=== PATIENT | female | born 1995 | race American Indian/Alaskan Native ===

== ENCOUNTER 2018-04-29 00:41 | Outpatient (CLI) | payer MEDICAID ==
--- NOTE | 2018-04-29 06:37 | Ultrasound Report ---
FINAL REPORT EXAM: US OB BPP WO NON-STRESS HISTORY: decrease mvmt TECHNIQUE: A limited OB sonogram was obtained for evaluation of a biophysical profile. FINDINGS: For tone, a score of 2 out of 2 was obtained. For breathing, a score of 2 out of 2 was obtained. For movements, a score of 2 out of 2 was obtained. For amniotic fluid volume, a score of 2 out of 2 was obtained. The biophysical profile score is 8 out of 8. The heart rate is 151 BPM. IMPRESSION: Biophysical profile score of 8 out of 8. The heart rate is 151 BPM.
--- NOTE | 2018-04-29 07:02 | Ultrasound Report ---
FINAL REPORT EXAM: US OB LIMITED HISTORY: decrease mvmt TECHNIQUE: A limited OB sonogram was obtained for evaluation of amniotic fluid index. FINDINGS: There is a single viable intrauterine with heart rate of 151 BPM. The OMAR is 9 cm which is within normal range. IMPRESSION: OMAR of 9 cm which is in normal range. The heart rate is 151 BPM.
== END 2018-04-29 02:24 | disposition home or self-care (01) ==
LOC: TRG 00:41
PROVIDERS: ATTEND Obstetrics & Gynecology
DX: O36.8130 Decreased fetal movements, third trimester, not applicable or unspecified (principal); Z3A.38 38 weeks gestation of pregnancy
CPT/HCPCS: 59025; 76815; 76819

== ENCOUNTER 2018-05-13 10:36 | Outpatient (CLI) | payer MEDICAID ==
[2018-05-13] MEDS ORDERED: VISTARIL PO PRN (11:50)
[2018-05-13 13:28] VITALS: BP 120/74
== END 2018-05-13 13:50 | disposition home or self-care (01) ==
LOC: TRG 10:36
PROVIDERS: ATTEND Obstetrics & Gynecology
DX: O47.1 False labor at or after 37 completed weeks of gestation (principal); Z3A.40 40 weeks gestation of pregnancy
CPT/HCPCS: 59025

== ENCOUNTER 2018-05-14 17:29 | Outpatient (CLI) | payer MEDICAID ==
[2018-05-14 17:46] VITALS: BP 121/76
== END 2018-05-14 18:18 | disposition home or self-care (01) ==
LOC: TRG 17:29
PROVIDERS: ATTEND Obstetrics & Gynecology
DX: O47.1 False labor at or after 37 completed weeks of gestation (principal); Z3A.40 40 weeks gestation of pregnancy

== ENCOUNTER 2018-05-18 06:08 | Outpatient (CLI) | payer MEDICAID ==
[2018-05-18 06:28] VITALS: BP 112/70
[2018-05-18] MEDS ORDERED: VISTARIL PO ONE (07:08)
== END 2018-05-18 07:26 | disposition home or self-care (01) ==
LOC: TRG 06:08
PROVIDERS: ATTEND Obstetrics & Gynecology
DX: O47.1 False labor at or after 37 completed weeks of gestation (principal); Z3A.41 41 weeks gestation of pregnancy
CPT/HCPCS: Q0177

== ENCOUNTER 2018-05-19 04:51 | Outpatient (CLI) | payer MEDICAID ==
[2018-05-19 06:00] VITALS: BP 130/90
[2018-05-19] MEDS ORDERED: MORPHINE IM ONE ×2 (08:41→09:00)
[2018-05-19] MEDS ORDERED: MORPHINE ONE (08:46)
== END 2018-05-19 09:20 | disposition home or self-care (01) ==
LOC: TRG 04:51
PROVIDERS: ATTEND Obstetrics & Gynecology
DX: O62.9 Abnormality of forces of labor, unspecified (principal); Z3A.41 41 weeks gestation of pregnancy
CPT/HCPCS: 59025; J2270

== ENCOUNTER 2018-05-19 20:50 | Inpatient (IN) | payer MEDICAID ==
[2018-05-19] MEDS ORDERED: LACTATED RINGERS 1,000 ML ONE (22:26)
[2018-05-19] MEDS ORDERED: PITOCin/NS 30 UNIT/500ML 30 UNITS/500 ML BAG IV SCH (22:28)
[2018-05-19 22:55] LABS: Hematocrit 37.7 % (30.3-42.9); Hemoglobin 12.7 gm/dl (10.1-14.3); Mean Corpuscular HGB Conc 34 % (30-34); Mean Corpuscular Hemoglobin 30 pg (28-32); Mean Corpuscular Volume 88 fl (79-97); Platelet Count 179 K/mm3 (140-440); Red Cell Distribution Width 14.4 % (13.2-15.2)
[2018-05-19] MEDS ORDERED: LACTATED RINGERS 1,000 ML IV SCH (23:00)
[2018-05-19] MEDS: ZOFRAN IV PRN (23:34)
[2018-05-20] MEDS: SUBLIMAZE IV PRN ×2 (02:29→04:35)
[2018-05-20] MEDS ORDERED: ePHEDrine SULFATE ONE (05:18)
--- NOTE | 2018-05-20 06:05 | History and Physical Report ---
History of Present Illness Date of examination: 05/20/18 (postdates IOL) Date of admission: 05/19/18 20:50 History of present illness: EDC Confirmation: 05/10/2018 Gestational Age: 8 5/7 weeks Past History : 1 Term Births: 0 Premature Births: 0 Living Children: 0 Para: 0 Mult. Births: 0 Prev : 0 Prev. attempt? 0 Aborta: 0 Elect. Ab: 0 Spont. Ab: 0 Ectopics: 0 Past Medical History: Breast tumors Past Surgical History: Breast Surgery: (2011) bilateral benign Family History Summary: Other family member - Has No Family History of Ovarvian Cancer - Entered On: Other family member - Has No Family History of Breast Cancer - Entered On: 10/03 Other family member - Has Family History of Hypertension - Entered On: 2016 Other family member - Has Family History of Diabetes - Entered On: 10/03/2017 Other family member - Has Family History of CVA or Stroke - Entered On: 2016 Other family member - Has Family History of Coronary Heart Disease - Entered On : 10/03/2017 Other family member - Has Family History Colon Cancer - Entered On: 10/03/2017 Social History: Patient is single Student Works at [employer] Risk Factors: Smoked Tobacco Use: Never smoker Drug use: no HIV high-risk behavior: low risk Alcohol use: yes Drinks per day: social Dietary Counseling: pn yes Past Medical History Surgery (Non-property worker): Breast Surgery: (2011) bilateral benign Abnormal PAP: negative Uterine Anomaly: negative Social Hx: Patient is single Student Works at [employer] Infection History Hx of STD: none HIV Risk Eval: low risk Hepatitis B Risk Eval: low risk Personal hx. of genital herpes: no Genetic History Congenital Heart Defect: Mom: no Dad: no Babak Disease: Mom: no Dad: no Thalassemia Mom: no Dad: no Neural Tube Defect Mom: no Dad: no Down's Syndrome Mom: no Dad: no Shai-Sachs Mom: no Dad: no Sickle Cell Disease/Trait Mom: no Dad: no Hemophilia Mom: no Dad: no Muscular Dystrophy Mom: no Dad: no Cystic Fibrosis Mom: no Dad: no [place] Chorea Mom: no Dad: no Mental Retardation Mom: no Dad: no Fragile X Mom: no Dad: no Other Genetic/Chromosomal Disorder Mom: no Dad: no Child w/other defect Mom: no Dad: no Enviromental Exposures Xray Exposure: no Medication, drug, or alcohol use since LMP: no Chemical/Other Exposure: no Exposure to Cat Liter: no Active Medications (reviewed today): PROMETHAZINE HCL 25 MG ORAL TABLET (PROMETHAZINE HCL) 1 po q 6 hrs prn nausea Current Allergies (reviewed today): No known allergies Laboratory Results Date/Time Collected: 10/03/2017 Urine HCG: positive Review of Systems General Complains of fatigue. Denies fever, chills, sweats, anorexia, weakness, malaise, weight loss and sleep disorder. Complains of vaginal discharge and pelvic pain. Denies incontinence, dysuria, hematuria, urinary frequency, amenorrhea, menorrhagia, abnormal vaginal bleeding, genital sores, decreased libido, painful periods, painful sex, urinary urgency, hot flashes, vaginal dryness, vaginal itching and vaginal odor. CV Denies chest pains, palpitations, syncope, dyspnea on exertion, orthopnea, PND and peripheral edema. Resp Denies cough, dyspnea at rest, excessive sputum, hemoptysis, wheezing and pleurisy. GI Complains of nausea and vomiting. Denies diarrhea, constipation, change in bowel habits, abdominal pain, melena, hematochezia, jaundice, gas/bloating, indigestion/heartburn, dysphagia and odynophagia. Breast Complains of breast pain. Denies left breast lump, right breast lump, nipple discharge, bloody discharge from nipple, abnormal mammogram and breast enlargement. Psych Denies depression, anxiety, irritability and mood swings. Past History - Obstetrical History Expected Date of Delivery: 05/10/18 Actual Gestation: 41 Week(s) 3 Day(s) : 1 Para: 0 Hx # Term Pregnancies: 0 Number of Pregnancies: 0 Spontaneous Abortions: 0 Induced : 0 Number of Living Children: 0 Medications and Allergies Allergies Allergy/AdvReac Type Severity Reaction Status Date / Time No Known Allergies Allergy Unverified 11/27/14 23:16 Home Medications Medication Instructions Recorded Confirmed Last Taken Type Ferrous Sulfate [Feosol 325 MG tab] 325 mg PO TID #90 tablet 11/28/14 10/31/17 Unknown Rx Promethazine HCl [Phenergan SUPPOS] 25 mg NH Q6HR #30 supp.rect 11/01/17 Unknown Rx Active Meds: Active Medications Fentanyl (Sublimaze) 100 mcg IV Q2H PRN PRN Reason: Labor Pain Last Admin: 05/20/18 04:35 Dose: 100 mcg Lactated Ringer's (Lactated Ringers) 1,000 mls @ 125 mls/hr IV DIRECT JEANNETTE Last Admin: 05/19/18 22:40 Dose: 125 mls/hr Oxytocin/Sodium Chloride (Pitocin/Ns 30 Unit/500ml) 30 units in 500 mls @ 1 mls /hr IV TITR JEANNETTE; Protocol Last Titration: 05/20/18 03:55 Dose: 3 milliunits/min, 3 mls/hr Ondansetron HCl (Zofran) 4 mg IV Q8H PRN PRN Reason: Nausea And Vomiting Last Admin: 05/19/18 23:34 Dose: 4 mg - Vital Signs Vital signs: Vital Signs Pulse Pulse Ox 105 H 99 05/19/18 21:30 05/19/18 21:30 Temp Pulse Resp BP Pulse Ox 98.3 F 80 18 126/73 96 05/19/18 22:23 05/20/18 06:04 05/20/18 02:29 05/20/18 06:04 05/20/18 06:01 - Physical Exam Breasts: Positive: deferred Cardiovascular: Regular rate, Normal S1, Normal S2 Lungs: Positive: Normal air movement Abdomen: Positive: normal appearance, soft, normal bowel sounds. Negative: distention, tenderness Genitourinary (Female): Positive: normal perenium Vulva: both: normal Vagina: Positive: normal moisture. Negative: discharge Cervix: Negative: lesion, discharge Uterus: Positive: normal size, normal contour Adnexa: both: normal Anus/Rectum: Positive: normal perianal skin, heme negative. Negative: rectal mass, hemorrhoids Extremities: Positive: normal Deep Tendon Reflex Grade: Normal +2 - Obstetrical FHR: category 1 Uterine Contraction Monitor Mode: External Cervical Dilatation: 4.5 (per RN) Cervical Effacement Percentage: 100 station: 0 Uterine Contraction Pattern: Regular Uterine Tone Measurement Phase: Resting Uterine Contraction Intensity: Moderate Results Result Diagrams: 05/19/18 21:27 Abnormal lab results 05/19/18 Range/Units 21:27 WBC 12.0 H (4.5-11.0) K/mm3 All other labs normal. Strep Gp B CECILE Negative 04-10-18 OFFICE LABS DRAWN: 10-30-17 HBsAg Screen Negative Negative *1 RPR Non Reactive Non Reactive *2 Rubella Antibodies, IgG 6.69 index Immune >0.99 *3 Non-immune <0.90 Equivocal 0.90 - 0.99 Immune >0.99 ABO Grouping O *4 Rh Factor Positive *5 Please note: Prior records for this patient's ABO / Rh type are not available for additional verification. Antibody Screen Negative Negative *6 WBC 9.4 x10E3/uL 3.4-10.8 *7 RBC 4.35 x10E6/uL 3.77-5.28 *8 Hemoglobin 11.9 g/dL 11.1-15.9 *9 Hematocrit 37.9 % 34.0-46.6 *10 MCV 87 fL 79-97 *11 MCH 27.4 pg 26.6-33.0 *12 MCHC [L] 31.4 g/dL 31.5-35.7 *13 RDW 15.1 % 12.3-15.4 *14 Platelets 285 x10E3/uL 150-379 *15 Neutrophils 75 % Not Estab. *16 Lymphs 16 % Not Estab. *17 Monocytes 7 % Not Estab. *18 Eos 2 % Not Estab. *19 Basos 0 % Not Estab. *20 Neutrophils (Absolute) [H] 7.1 x10E3/uL 1.4-7.0 *21 Lymphs (Absolute) 1.5 x10E3/uL 0.7-3.1 *22 Monocytes(Absolute) 0.7 x10E3/uL 0.1-0.9 *23 Eos (Absolute) 0.2 x10E3/uL 0.0-0.4 *24 Baso (Absolute) 0.0 x10E3/uL 0.0-0.2 *25 ! Immature Granulocytes 0 % Not Estab. *26 ! Immature Grans (Abs) 0.0 x10E3/uL 0.0-0.1 *27 ! SMA Results: SPRCS *34 SMN1 copy number: 3 (Reduced Carrier Risk) Tests: (3) Cystic Fibrosis Profile (214129) ! CF, Screen Comment: *42 RESULTS: Negative for 32 mutations analyzed Tests: (4) HB Solu + Rflx Frac (738389) Hemoglobin (Hgb) Solubility Negative Negative *44 Tests: (5) Panel 067423 ([id number]) HIV Screen 4th Generation wRfx Non Reactive Non Reactive *45 Tests: (6) HCV Ab w/Rflx to Verification (970083) ! HCV Ab 0.1 s/co ratio 0.0-0.9 *46 Tests: (7) Comment: (476350) ! Comment: SPRCS *47 Non reactive HCV antibody screen is consistent with no HCV infection, unless recent infection is suspected or other evidence exists to indicate HCV infection. Tests: (8) Urine Culture, Routine (259339) Urine Culture, Routine Final report *48 Tests: (9) Result (506077) ! Result 1 No growth *49 Assessment and Plan - Patient Problems (1) 41 weeks gestation of Onset Date: ~05/20/18 Current Visit: Yes Status: Acute Plan to address problem: Pt presents for IOL due to postdates 22yo @ 41 weeks GBS negative Orders in EMR
[2018-05-20] MEDS ORDERED: ePHEDrine SULFATE IV PRN ×2 (06:07→06:42)
[2018-05-20] MEDS ORDERED: BRETHINE SUB-Q PRN (06:07)
[2018-05-20] MEDS ORDERED: MINERAL OIL PO PRN (06:07)
[2018-05-20] MEDS ORDERED: XYLOCAINE 2% INFILTRATI ONE (06:07)
--- NOTE | 2018-05-20 06:28 | Progress Note ---
Assessment and Plan Pt on 6mu SVE 6,100,+1 BBOW Anticipate delivery. - Patient Problems (1) 41 weeks gestation of Onset Date: ~05/20/18 Current Visit: Yes Status: Acute Subjective - Subjective Date of service: 05/20/18 (comfortable with epidural) Interval history: EDC Confirmation: 05/10/2018 Gestational Age: 8 5/7 weeks Past History : 1 Term Births: 0 Premature Births: 0 Living Children: 0 Para: 0 Mult. Births: 0 Prev : 0 Prev. attempt? 0 Aborta: 0 Elect. Ab: 0 Spont. Ab: 0 Ectopics: 0 Past Medical History: Breast tumors Past Surgical History: Breast Surgery: (2011) bilateral benign Family History Summary: Other family member - Has No Family History of Ovarvian Cancer - Entered On: Other family member - Has No Family History of Breast Cancer - Entered On: 10/03 Other family member - Has Family History of Hypertension - Entered On: 2016 Other family member - Has Family History of Diabetes - Entered On: 10/03/2017 Other family member - Has Family History of CVA or Stroke - Entered On: 2016 Other family member - Has Family History of Coronary Heart Disease - Entered On : 10/03/2017 Other family member - Has Family History Colon Cancer - Entered On: 10/03/2017 Social History: Patient is single Student Works at [employer] Risk Factors: Smoked Tobacco Use: Never smoker Drug use: no HIV high-risk behavior: low risk Alcohol use: yes Drinks per day: social Dietary Counseling: pn yes Past Medical History Surgery (Non-obstetrics gynecology physician): Breast Surgery: (2011) bilateral benign Abnormal PAP: negative Uterine Anomaly: negative Social Hx: Patient is single Student Works at [employer] Infection History Hx of STD: none HIV Risk Eval: low risk Hepatitis B Risk Eval: low risk Personal hx. of genital herpes: no Genetic History Congenital Heart Defect: Mom: no Dad: no Babak Disease: Mom: no Dad: no Thalassemia Mom: no Dad: no Neural Tube Defect Mom: no Dad: no Down's Syndrome Mom: no Dad: no Shai-Sachs Mom: no Dad: no Sickle Cell Disease/Trait Mom: no Dad: no Hemophilia Mom: no Dad: no Muscular Dystrophy Mom: no Dad: no Cystic Fibrosis Mom: no Dad: no [place] Chorea Mom: no Dad: no Mental Retardation Mom: no Dad: no Fragile X Mom: no Dad: no Other Genetic/Chromosomal Disorder Mom: no Dad: no Child w/other defect Mom: no Dad: no Enviromental Exposures Xray Exposure: no Medication, drug, or alcohol use since LMP: no Chemical/Other Exposure: no Exposure to Cat Liter: no Active Medications (reviewed today): PROMETHAZINE HCL 25 MG ORAL TABLET (PROMETHAZINE HCL) 1 po q 6 hrs prn nausea Current Allergies (reviewed today): No known allergies Laboratory Results Date/Time Collected: 10/03/2017 Urine HCG: positive Review of Systems General Complains of fatigue. Denies fever, chills, sweats, anorexia, weakness, malaise, weight loss and sleep disorder. Complains of vaginal discharge and pelvic pain. Denies incontinence, dysuria, hematuria, urinary frequency, amenorrhea, menorrhagia, abnormal vaginal bleeding, genital sores, decreased libido, painful periods, painful sex, urinary urgency, hot flashes, vaginal dryness, vaginal itching and vaginal odor. CV Denies chest pains, palpitations, syncope, dyspnea on exertion, orthopnea, PND and peripheral edema. Resp Denies cough, dyspnea at rest, excessive sputum, hemoptysis, wheezing and pleurisy. GI Complains of nausea and vomiting. Denies diarrhea, constipation, change in bowel habits, abdominal pain, melena, hematochezia, jaundice, gas/bloating, indigestion/heartburn, dysphagia and odynophagia. Breast Complains of breast pain. Denies left breast lump, right breast lump, nipple discharge, bloody discharge from nipple, abnormal mammogram and breast enlargement. Psych Denies depression, anxiety, irritability and mood swings. Patient reports: movement normal Objective - Vital Signs Vital Signs: Vital Signs - 12hr 05/19/18 05/19/18 05/19/18 21:30 21:35 21:40 Temperature Pulse Rate 105 H 101 H 100 H Respiratory Rate Blood Pressure Blood Pressure [Left] O2 Sat by Pulse 99 98 99 Oximetry 05/19/18 05/19/18 05/19/18 21:45 21:50 21:55 Temperature Pulse Rate 94 H 101 H 85 Respiratory Rate Blood Pressure Blood Pressure [Left] O2 Sat by Pulse 98 98 98 Oximetry 05/19/18 05/19/18 05/19/18 22:00 22:23 22:27 Temperature 98.3 F Pulse Rate 93 H 92 H 92 H Respiratory 18 Rate Blood Pressure 126/84 Blood Pressure 126/84 [Left] O2 Sat by Pulse 98 98 98 Oximetry 05/19/18 05/19/18 05/19/18 22:32 22:37 22:42 Temperature Pulse Rate 107 H 91 H 96 H Respiratory Rate Blood Pressure Blood Pressure [Left] O2 Sat by Pulse 98 97 98 Oximetry 05/19/18 05/19/18 05/19/18 22:47 22:52 22:57 Temperature Pulse Rate 94 H 89 87 Respiratory Rate Blood Pressure Blood Pressure [Left] O2 Sat by Pulse 98 98 98 Oximetry 05/19/18 05/19/18 05/19/18 23:02 23:11 23:16 Temperature Pulse Rate 94 H 84 101 H Respiratory Rate Blood Pressure 125/83 Blood Pressure [Left] O2 Sat by Pulse 98 99 98 Oximetry 05/19/18 05/19/18 05/19/18 23:21 23:26 23:31 Temperature Pulse Rate 100 H 113 H 104 H Respiratory Rate Blood Pressure Blood Pressure [Left] O2 Sat by Pulse 98 98 98 Oximetry 05/19/18 05/19/18 05/19/18 23:32 23:36 23:41 Temperature Pulse Rate 104 H 101 H 109 H Respiratory Rate Blood Pressure Blood Pressure [Left] O2 Sat by Pulse 83 L 100 100 Oximetry 05/19/18 05/19/18 05/19/18 23:46 23:51 23:56 Temperature Pulse Rate 89 96 H 89 Respiratory Rate Blood Pressure Blood Pressure [Left] O2 Sat by Pulse 100 99 100 Oximetry 05/19/18 05/20/18 05/20/18 23:57 00:01 00:12 Temperature Pulse Rate 100 H 72 74 Respiratory Rate Blood Pressure Blood Pressure [Left] O2 Sat by Pulse 82 L 98 78 L Oximetry 05/20/18 05/20/18 05/20/18 00:17 00:22 00:26 Temperature Pulse Rate 78 72 86 Respiratory Rate Blood Pressure Blood Pressure [Left] O2 Sat by Pulse 99 99 85 Oximetry 05/20/18 05/20/18 05/20/18 00:27 00:32 00:37 Temperature Pulse Rate 95 H 83 71 Respiratory Rate Blood Pressure Blood Pressure [Left] O2 Sat by Pulse 100 100 100 Oximetry 05/20/18 05/20/18 05/20/18 00:42 00:47 00:52 Temperature Pulse Rate 82 70 97 H Respiratory Rate Blood Pressure Blood Pressure [Left] O2 Sat by Pulse 100 100 100 Oximetry 05/20/18 05/20/18 05/20/18 00:57 01:02 01:03 Temperature Pulse Rate 79 99 H 37 L Respiratory Rate Blood Pressure Blood Pressure [Left] O2 Sat by Pulse 100 99 81 L Oximetry 05/20/18 05/20/18 05/20/18 01:04 01:07 01:12 Temperature Pulse Rate 86 100 H 103 H Respiratory Rate Blood Pressure 126/74 Blood Pressure [Left] O2 Sat by Pulse 99 99 Oximetry 05/20/18 05/20/18 05/20/18 01:16 01:17 01:22 Temperature Pulse Rate 124 H 87 91 H Respiratory Rate Blood Pressure Blood Pressure [Left] O2 Sat by Pulse 90 100 100 Oximetry 05/20/18 05/20/18 05/20/18 01:27 01:37 01:42 Temperature Pulse Rate 94 H 84 97 H Respiratory Rate Blood Pressure Blood Pressure [Left] O2 Sat by Pulse 100 100 99 Oximetry 05/20/18 05/20/18 05/20/18 01:47 01:52 01:57 Temperature Pulse Rate 81 87 85 Respiratory Rate Blood Pressure Blood Pressure [Left] O2 Sat by Pulse 99 99 99 Oximetry 05/20/18 05/20/18 05/20/18 02:02 02:04 02:07 Temperature Pulse Rate 87 77 94 H Respiratory Rate Blood Pressure 127/84 Blood Pressure [Left] O2 Sat by Pulse 99 98 Oximetry 05/20/18 05/20/18 05/20/18 02:12 02:17 02:22 Temperature Pulse Rate 96 H 97 H 85 Respiratory Rate Blood Pressure Blood Pressure [Left] O2 Sat by Pulse 99 99 99 Oximetry 05/20/18 05/20/18 05/20/18 02:27 02:28 02:29 Temperature Pulse Rate 90 82 Respiratory 18 Rate Blood Pressure 122/84 Blood Pressure [Left] O2 Sat by Pulse 98 Oximetry 05/20/18 05/20/18 05/20/18 02:32 02:37 02:42 Temperature Pulse Rate 103 H 86 81 Respiratory Rate Blood Pressure Blood Pressure [Left] O2 Sat by Pulse 99 99 97 Oximetry 05/20/18 05/20/18 05/20/18 02:47 02:52 02:57 Temperature Pulse Rate 82 91 H 82 Respiratory Rate Blood Pressure Blood Pressure [Left] O2 Sat by Pulse 98 98 98 Oximetry 05/20/18 05/20/18 05/20/18 03:02 03:05 03:07 Temperature Pulse Rate 80 81 81 Respiratory Rate Blood Pressure 125/79 Blood Pressure [Left] O2 Sat by Pulse 98 98 Oximetry 05/20/18 05/20/18 05/20/18 03:12 03:17 03:22 Temperature Pulse Rate 81 82 77 Respiratory Rate Blood Pressure Blood Pressure [Left] O2 Sat by Pulse 98 98 99 Oximetry 05/20/18 05/20/18 05/20/18 03:27 03:32 03:37 Temperature Pulse Rate 98 H 83 76 Respiratory Rate Blood Pressure Blood Pressure [Left] O2 Sat by Pulse 99 99 99 Oximetry 05/20/18 05/20/18 05/20/18 03:42 03:47 03:52 Temperature Pulse Rate 90 88 96 H Respiratory Rate Blood Pressure Blood Pressure [Left] O2 Sat by Pulse 99 99 99 Oximetry 05/20/18 05/20/18 05/20/18 03:57 04:02 04:04 Temperature Pulse Rate 100 H 106 H 79 Respiratory Rate Blood Pressure 120/77 Blood Pressure [Left] O2 Sat by Pulse 99 100 Oximetry 05/20/18 05/20/18 05/20/18 04:07 04:18 04:23 Temperature Pulse Rate 75 86 77 Respiratory Rate Blood Pressure Blood Pressure [Left] O2 Sat by Pulse 100 97 95 Oximetry 05/20/18 05/20/18 05/20/18 04:26 04:28 04:32 Temperature Pulse Rate 90 90 55 L Respiratory Rate Blood Pressure Blood Pressure [Left] O2 Sat by Pulse 94 95 81 L Oximetry 05/20/18 05/20/18 05/20/18 04:33 04:38 04:43 Temperature Pulse Rate 90 83 80 Respiratory Rate Blood Pressure Blood Pressure [Left] O2 Sat by Pulse 96 96 96 Oximetry 05/20/18 05/20/18 05/20/18 04:45 04:48 04:52 Temperature Pulse Rate 87 71 78 Respiratory Rate Blood Pressure Blood Pressure [Left] O2 Sat by Pulse 94 94 94 Oximetry 05/20/18 05/20/18 05/20/18 04:54 04:57 04:59 Temperature Pulse Rate 88 79 85 Respiratory Rate Blood Pressure Blood Pressure [Left] O2 Sat by Pulse 95 94 95 Oximetry 05/20/18 05/20/18 05/20/18 05:04 05:05 05:06 Temperature Pulse Rate 85 94 H 96 H Respiratory Rate Blood Pressure 143/83 Blood Pressure [Left] O2 Sat by Pulse 95 94 Oximetry 05/20/18 05/20/18 05/20/18 05:13 05:31 05:36 Temperature Pulse Rate 78 99 H 110 H Respiratory Rate Blood Pressure Blood Pressure [Left] O2 Sat by Pulse 93 100 98 Oximetry 05/20/18 05/20/18 05/20/18 05:40 05:41 05:43 Temperature Pulse Rate 101 H 99 H 102 H Respiratory Rate Blood Pressure 131/63 127/64 140/88 Blood Pressure [Left] O2 Sat by Pulse 99 Oximetry 05/20/18 05/20/18 05/20/18 05:45 05:46 05:47 Temperature Pulse Rate 81 85 91 H Respiratory Rate Blood Pressure 137/84 139/85 Blood Pressure [Left] O2 Sat by Pulse 98 Oximetry 05/20/18 05/20/18 05/20/18 05:49 05:51 05:53 Temperature Pulse Rate 83 110 H 87 Respiratory Rate Blood Pressure 130/78 115/67 119/70 Blood Pressure [Left] O2 Sat by Pulse 96 Oximetry 05/20/18 05/20/18 05/20/18 05:55 05:56 05:57 Temperature Pulse Rate 94 H 105 H 101 H Respiratory Rate Blood Pressure 126/76 126/72 Blood Pressure [Left] O2 Sat by Pulse 98 Oximetry 05/20/18 05/20/18 05/20/18 05:59 06:01 06:03 Temperature Pulse Rate 85 105 H 96 H Respiratory Rate Blood Pressure 114/70 115/69 123/70 Blood Pressure [Left] O2 Sat by Pulse 96 Oximetry 05/20/18 05/20/18 05/20/18 06:04 06:06 06:07 Temperature Pulse Rate 80 90 85 Respiratory Rate Blood Pressure 126/73 132/79 Blood Pressure [Left] O2 Sat by Pulse 98 Oximetry 05/20/18 05/20/1805/20/18 06:11 06:13 06:16 Temperature Pulse Rate 85 89 80 Respiratory Rate Blood Pressure 124/75 Blood Pressure [Left] O2 Sat by Pulse 99 99 Oximetry 05/20/18 05/20/18 05/20/18 06:18 06:21 06:23 Temperature Pulse Rate 98 H 89 82 Respiratory Rate Blood Pressure 119/77 118/77 Blood Pressure [Left] O2 Sat by Pulse 99 Oximetry - Exam Breasts: deferred Cardiovascular: Regular rate Lungs: Normal air movement Abdomen: Present: normal appearance, soft. Absent: distention, tenderness Uterus: Present: normal FHR: auscultation normal Uterine Contraction Monitor Mode: External Cervical Dilatation: 6 (BBOW) Cervical Effacement Percentage: 100 station: +1 Uterine Contraction Pattern: Regular Uterine Tone Measurement Phase: Resting Uterine Contraction Intensity: Moderate Extremities: normal Deep Tendon Reflex Grade: Normal +2 - Labs Labs: Abnormal Labs 05/19/18 21:27 WBC 12.0 H Laboratory Results - last 24 hr 05/19/18 05/19/18 21:27 21:27 WBC 12.0 H RBC 4.30 Hgb 12.7 Hct 37.7 MCV 88 MCH 30 MCHC 34 RDW 14.4 Plt Count 179 Blood Type O POSITIVE Antibody Screen Negative
[2018-05-20] MEDS ORDERED: NARCAN 2 MG/2 ML IV PRN (06:42)
--- NOTE | 2018-05-20 06:44 | Anesthesia Consultation ---
Anesthesia Consult and Med Hx Date of service: 05/20/18 - Airway Anesthetic Teeth Evaluation: Good ROM Head & Neck: Adequate Mental/Hyoid Distance: Adequate Mallampati Class: Class II Intubation Access Assessment: Possibly Difficult - Pulmonary Exam CTA: Yes - Cardiac Exam Cardiac Exam: RRR - Pre-Operative Health Status ASA Pre-Surgery Classification: ASA2 Proposed Anesthetic Plan: Epidural, Spinal - Pulmonary Hx Smoking: No Hx Asthma: No COPD: No Hx Pneumonia: No - Cardiovascular System Hx Hypertension: No - Central Nervous System Hx Seizures: No Hx Psychiatric Problems: No - Endocrine Hx Renal Disease: No Hx End Stage Renal Disease: No Hx Hypothyroidism: No Hx Hyperthyroidism: No - Hematic Hx Anemia: No Hx Sickle Cell Disease: No - Other Systems Hx Alcohol Use: No Hx Cancer: No
[2018-05-20] MEDS ORDERED: LACTATED RINGERS 1,000 ML IV SCH (07:00)
[2018-05-20] MEDS ORDERED: fentaNYL-BUPIV 2 MCG/ML-0.125% 200 MCG/100 ML BAG EPIDURAL SCH (07:00)
[2018-05-20] MEDS ORDERED: PITOCin/NS 20 UNIT/1000ML DRIP 20 UNITS/1,000 ML BAG IV SCH ×2 (07:00→09:53)
--- NOTE | 2018-05-20 07:12 | Event Note ---
Date: 05/20/18 (Meconium stained fluid) Internal monitors placed Meconium NICU notified
--- NOTE | 2018-05-20 08:18 | Procedure Note ---
OB Delivery Note - Delivery Date of Delivery: 05/20/18 Mother'S Helper: ELANA FUNEZ (NICU present) Estimated blood loss: 300cc - Vaginal Delivery presentation: vertex Delivery position: OA Intrapartum events: meconium Delivery induction: oxytocin Delivery augmentation: pitocin Delivery monitor: internal FHT, internal uterine Route of delivery: Delivery placenta: spontaneous Delivery cord: 3 umbilical vessels Episiotomy: none Delivery laceration: 2nd degree Delivery repair: vicryl Anesthesia: epidural Delivery comments: NICU and RT present due to meconium over intact perineum OT Baby to mom's abdomen skin to skin Crying vigorously Cord blood obtained Placenta and membrane del complete and intact, 3 vessel cord. Pitocin IVFs 8/9, EBL 300,Wgt 6-4 Mom and baby remain LDR stable - Infant A at 1 minute: 8 at 5 minutes: 9 Gender: Female (wgt 6-4)
[2018-05-20] MEDS: ZOFRAN IV PRN (09:20)
[2018-05-20] MEDS ORDERED: SODIUM CHLORIDE FLUSH SYRINGE 10 ML IV NR (09:53)
[2018-05-20] MEDS ORDERED: TYLENOL PO PRN (09:53)
[2018-05-20] MEDS ORDERED: PHENERGAN PO PRN (09:53)
[2018-05-20] MEDS ORDERED: BENADRYL PO PRN (09:53)
[2018-05-20] MEDS ORDERED: LANSINOH TP PRN (09:53)
[2018-05-20] MEDS ORDERED: DERMOPLAST TP PRN (09:53)
[2018-05-20] MEDS ORDERED: TUCKS PAD TP PRN (09:53)
[2018-05-20] MEDS ORDERED: DULCOLAX PR PRN (10:00)
[2018-05-20] MEDS: PRENATAL VITAMIN PO SCH (10:16)
[2018-05-20] MEDS: COLACE PO SCH (10:16)
[2018-05-20] MEDS: MOTRIN PO SCH ×3 (10:16→19:23)
[2018-05-20] MEDS: FEOSOL PO SCH (10:36)
[2018-05-20 20:27] LABS: Hematocrit 31.4 % (30.3-42.9); Hemoglobin 10.7 gm/dl (10.1-14.3)
[2018-05-20] MEDS ORDERED: MILK OF MAGNESIA PO PRN (22:00)
[2018-05-21] MEDS: FEOSOL PO SCH ×2 (00:25→10:55)
[2018-05-21] MEDS: MOTRIN PO SCH ×2 (00:27→06:40)
[2018-05-21] MEDS: COLACE PO SCH ×2 (00:28→10:55)
--- NOTE | 2018-05-21 07:06 | Discharge Summary ---
Providers - Providers Date of Admission: 05/19/18 20:50 Date of discharge: 05/21/18 (pt desires d/c) Attending physician: JU VILLALOBOS 05/20/18 09:53 Consult to Tunnel Heading Supervisor [CONS] Routine Reason For Exam: assistance with , SNS Primary care physician: JU VILLALOBOS Hospitalization Reason for admission: induction of labor Delivery: Episiotomy: none Laceration: 2nd degree Incision: normal, dry, intact Other procedures: none complications: none Discharge diagnosis: IUP at term delivered baby: female Hospital course: uncomplicated vaginal delivery Pt awake holding NB Req d/c today if possible VSS FF below umb Lochia small Perineum slight swelling intact H&H 08/20 stable Doing well s/p vag delivery P: d/c today with instructions RTO 4 weeks PP care. RX provided. Condition at discharge: Good Disposition: DC-01 TO HOME OR SELFCARE - Discharge Diagnoses (1) (normal spontaneous vaginal delivery) Status: Acute Comment: RTO 4 weeks PP care Plan - Discharge Medications Prescriptions: Ibuprofen [Motrin 800 MG tab] 800 mg PO Q8HR PRN #30 tablet PRN Reason: Pain - Provider Discharge Summary Activity: routine, no sex for 6 weeks, no heavy lifting 4 weeks, no strenuous exercise Diet: routine Instructions: routine Additional instructions: [] Smoking cessation referral if applicable(refer to patient education folder for contact #) [] Refer to [facility] Booklet Call your doctor immediately for: * Fever > 100.5 * Heavy vaginal bleeding ( >1 pad per hour) * Severe persistent headache * Shortness of breath * Reddened, hot, painful area to leg or breast * Drainage or odor from incision. * Keep incision clean and dry at all times and follow doctor's instructions regarding bathing/showering - Follow up plan Follow up: JU VILLALOBOS MD [Primary Care Provider] - 06/20/18 (Congratulations! Please call [phone] to schedule your care in 4 weeks. Take medications as prescribed. Call with any concerns.)
[2018-05-21] MEDS: PRENATAL VITAMIN PO SCH (10:55)
[2018-05-21 17:56] VITALS: BP 104/72
== END 2018-05-21 15:30 | disposition home or self-care (01) | DRG 775 ==
LOC: LD 20:50 → OB 05-20 10:00
PROVIDERS: ADMIT Obstetrics & Gynecology; ATTEND Obstetrics & Gynecology
PROC: 10E0XZZ Delivery of Products of Conception, External Approach (ICD-10-PCS; principal; 2018-05-20)
PROC: 3E0R3BZ Introduction of Anesthetic Agent into Spinal Canal, Percutaneous Approach (ICD-10-PCS; 2018-05-20)
PROC: 0KQM0ZZ Repair Perineum Muscle, Open Approach (ICD-10-PCS; 2018-05-20)
PROC: 00HU33Z Insertion of Infusion Device into Spinal Canal, Percutaneous Approach (ICD-10-PCS; 2018-05-20)
DX: O48.0 Post-term pregnancy (principal); O77.0 Labor and delivery complicated by meconium in amniotic fluid; O70.1 Second degree perineal laceration during delivery; Z80.41 Family history of malignant neoplasm of ovary; Z3A.41 41 weeks gestation of pregnancy; Z37.0 Single live birth
CPT/HCPCS: 36415; 85014; 85018; 85027; 86592; 86850; 86900; 86901; 87116; 99211; G0463; J2405; J2590; J3010; J7120